=== PATIENT | male | born 1995 | race Caucasian/White ===

== ENCOUNTER 2020-05-11 20:24 | Emergency (ER) | payer OTHER ==
[~2020-05-11] VITALS: Ht 170.2 cm; Wt 81.8 kg
--- NOTE | 2020-05-11 20:58 | PHYS DOC ---
General Adult EDM: Chief Complaint: CHEST PAIN HPI: HPI: Patient is a 24 year old male who presents with states Sunday night he got drunk and fell but cannot remember. States he has been having left anterior rib pain ever since. He states it hurts to take a deep breath and with movement. Patient denies hitting his head, blood thinners, syncope, dizziness, headache, abdominal pain, nausea, vomiting, dizziness. He states because of the pain he is feeling short of breath because he cannot take a deep breath. States that he took ibuprofen once but it did not help so he stopped taking it. Currently rates his pain an 8 out of 10 and states it aching. Review of Systems: Review of Systems: Constitutional: Denies fever or chills. [] Eyes: Denies change in visual acuity. [] HENT: Denies nasal congestion or sore throat. [] Respiratory: Denies cough or shortness of breath. [] Cardiovascular: Denies chest pain or edema. [] GI: Denies abdominal pain, nausea, vomiting, bloody stools or diarrhea. [] : Denies dysuria. [] Musculoskeletal: Denies back pain or joint pain. + Left rib pain. [] Integument: Denies rash. [] Neurologic: Denies headache, focal weakness or sensory changes. [] Endocrine: Denies polyuria or polydipsia. [] Lymphatic: Denies swollen glands. [] Psychiatric: Denies depression or anxiety. [] Heart Score: Risk Factors: Risk Factors: DM, Current or recent (<one month) smoker, HTN, HLP, family history of CAD, obesity. Risk Scores: Score 0 - 3: 2.5% MACE over next 6 weeks - Discharge Home Score 4 - 6: 20.3% MACE over next 6 weeks - Admit for Clinical Observation Score 7 - 10: 72.7% MACE over next 6 weeks - Early Invasive Strategies Physical Exam: PE: Constitutional: Well developed, well nourished, no acute distress, non-toxic appearance. [] HENT: Normocephalic, atraumatic, bilateral external ears normal, oropharynx moist, no oral exudates, nose normal. [] Eyes: PERRLA, EOMI, conjunctiva normal, no discharge. [] Neck: Normal range of motion, no tenderness, supple, no stridor. [] Cardiovascular:Heart rate regular rhythm, no murmur [] Lungs & Thorax: Bilateral breath sounds clear to auscultation. Tenderness over left anterior ribs. [] Abdomen: Bowel sounds normal, soft, no tenderness, no masses, no pulsatile masses. [] Skin: Warm, dry, no erythema, no rash. [] Back: No tenderness, no CVA tenderness. [] Extremities: No tenderness, no cyanosis, no clubbing, ROM intact, no edema. [] Neurologic: Alert and oriented X 3, normal motor function, normal sensory function, no focal deficits noted. [] Psychologic: Affect normal, judgement normal, mood normal. [] EKG: EK and read by Dr. Marquez as sinus tach at 101 and no STEMI Radiology/Procedures: Radiology/Procedures: [] Impression: [facility] [address] [place] [address] IMAGING REPORT Signed PATIENT: SHEY EL ACCOUNT: [id number] : 1995 LOCATION: ER AGE: 24 SEX: M EXAM STATUS: REG ER ORD. PHYSICIAN: PEGGY SY APRN REASON: PAIN PROCEDURE: RIBS BILAT & PA CXR 4+V XR RIBS AND CHEST 4+VIEWS DATE: 05/11/2020 8:59 PM INDICATION: PAIN COMPARISON: None available. FINDINGS: Chest: Heart size is within normal limits. No focal consolidations are seen. No evidence for pulmonary edema, pleural effusion, or pneumothorax. Bones: No radiographic evidence for a displaced bilateral rib fractures seen. IMPRESSION: No displaced rib fractures are seen. Electronically signed by: Maria Isabel Díaz MD (05/11/2020 9:17 PM) [facility] DICTATED and SIGNED BY: MARIA ISABEL DÍAZ MD DATE: 05/11/20 [id number] 0 Course & Med Decision Making: Course & Med Decision Making Pertinent Labs and Imaging studies reviewed. (See chart for details) See HPI. Alert and oriented x4. Speaks in full complete sentences. Ambulatory with a steady gait. Skin pink warm and dry. There is no bruising, no crepitus, no subcutaneous emphysema. No deformities are seen. There is no swelling over the area. Lungs are clear to all station all lobes. Patient be given an inspiratory spirometer. [] Dragon Disclaimer: Elvia Disclaimer: This electronic medical record was generated, in whole or in part, using a voice recognition dictation system. Departure Departure Impression: Primary Impression: Rib pain on left side Disposition: 01 DC HOME SELF CARE/HOMELESS Condition: STABLE Patient Instructions: Incentive Spirometer, Rib Contusion Additional Instructions: Follow-up with primary care provider. Use incentive spirometer. Take ibuprofen use a heating pad or ice to help with your pain. Remember do not wrap anything around her rib cage. If you Begin running a fever or having severe shortness of breath return to the emergency room. Scripts Hydrocodone Bit/Acetaminophen (HYDROCODONE-APAP 5-325 ) 1 Tab Tablet 1 TAB PO PRN Q6HRS PRN for PAIN, #8 TAB 0 Refills Prov: PEGGY SY LOOM OVERHAULER 05/11/20 Ibuprofen (IBUPROFEN) 600 Mg Tablet 600 MG PO PRN Q6HRS PRN for INFLAMMATION, #20 TAB Prov: PEGGY SY LOOM OVERHAULER 05/11/20 PEGGY SY LOOM OVERHAULER May 11, 2020 20:58
--- NOTE | 2020-05-11 21:19 | RAD ---
XR RIBS AND CHEST 4+VIEWS DATE: 05/11/2020 8:59 PM INDICATION: PAIN COMPARISON: None available. FINDINGS: Chest: Heart size is within normal limits. No focal consolidations are seen. No evidence for pulmona ry edema, pleural effusion, or pneumothorax. Bones: No radiographic evidence for a displaced bilateral rib fractures seen. IMPRESSION: No displaced rib fractures are seen. Electronically signed by: Calderon Díaz MD (05/11/2020 9:17 PM) [facility]
[2020-05-11 21:30] VITALS: BP 146/98
[2020-05-11] MEDS ORDERED: HYDR-2761 PO (21:30)
[2020-05-11] MEDS ORDERED: IBUP-1007 PO (21:30)
--- NOTE | 2020-05-12 17:27 | EKG ---
[facility] [address] [place] [address] Test Date: 2020-05-11 Test Time: 20:31:04 Pat Name: SHEY EL Department: Room: Gender: M [employer]: : 1995 Requested By: DIANE KERNS Order Number: [id number] Reading MD: Measurements Intervals [place] Rate: 101 P: 48 SC: 154 QRS: 53 QRSD: 90 T: 40 QT: 290 QTc: 377 Interpretive Statements SINUS TACHYCARDIA INCOMPLETE RIGHT BUNDLE BRANCH BLOCK OTHERWISE NORMAL ECG RI6.02 No previous ECG available for comparison
== END 2020-05-11 21:45 | disposition home or self-care (01) ==
LOC: ER 20:24
DX: R07.81 Pleurodynia (principal); R06.02 Shortness of breath
CPT/HCPCS: 71111; 93005; 99283; 99284